=== PATIENT | male | born 1955 | race Caucasian/White ===

== ENCOUNTER → 2016-09-02 | Outpatient (CLI) | payer MEDICARE, MEDICAID ==
[~2016-09-02] MED LIST: ALLO100T PO; AMMO225L14 TP; ASPI81 PO; ATOR10TA84 PO; BENZ-26 PO; BUDE10.2 IH; CEPH500 PO; ENOX30DI5 SQ; ESCI10TA PO; FURO40 PO; GABA-531 PO; INSLAN SQ; INSU100C3 SQ; LACHLOT TP; LIDOCAINE HCL 2% 5 ML JELLY TP ONE; LOSA25TA21 PO; MONT10TA21 PO; NYSTATIN 15 GM POWDER BOTTLE TP ONE; OMEP20 PO; PRED10 PO; SITA50 PO; SPIR50 PO
[2016-09-02 10:25] VITALS: BP 139/74
== END | disposition home or self-care (01) ==
LOC: HBOWC 09:25
PROVIDERS: ATTEND Emergency Medicine
DX: E11.621 Type 2 diabetes mellitus with foot ulcer (principal); L97.521 Non-pressure chronic ulcer of other part of left foot limited to breakdown of skin; E11.622 Type 2 diabetes mellitus with other skin ulcer; L97.321 Non-pressure chronic ulcer of left ankle limited to breakdown of skin; I87.2 Venous insufficiency (chronic) (peripheral); E11.40 Type 2 diabetes mellitus with diabetic neuropathy, unspecified; B35.1 Tinea unguium; L84 Corns and callosities; M21.42 Flat foot [pes planus] (acquired), left foot; M21.41 Flat foot [pes planus] (acquired), right foot; Z86.718 Personal history of other venous thrombosis and embolism
CPT/HCPCS: 11056; 11721; 97597

== ENCOUNTER 2016-09-16 10:24 | Inpatient (IN) | payer MEDICARE, MEDICAID ==
[~2016-09-16] VITALS: Ht 195.6 cm; Wt 156.6 kg
[~2016-09-16 10:24] MED LIST changes: -CEPH500 PO; -ENOX30DI5 SQ; -LACHLOT TP; -LIDOCAINE HCL 2% 5 ML JELLY TP ONE; -NYSTATIN 15 GM POWDER BOTTLE TP ONE
[2016-09-16] MEDS ORDERED: ENOX30DI5 SQ (10:29)
[2016-09-16 10:42] LABS: GLUCOSE,POINT OF CARE 268 MG/DL (70-110)
[2016-09-16 12:13] LABS: BASOPHILS % (AUTO) 0.4 % (0.0-2.0); EOSINOPHILS % (AUTO) 3.5 % (1.0-6.0); HEMATOCRIT 36.9 % (41-53); HEMOGLOBIN 11.7 g/dL (13.5-17.5); LYMPHOCYTES # (AUTO) 1.3 K/uL (1.0-4.8); LYMPHOCYTES % (AUTO) 20.6 % (22.0-44.0); MEAN CORPUSCULAR HEMOGLOBIN 30.5 pg (26.0-34.0); MEAN CORPUSCULAR HGB CONC 31.8 G/dL (31.0-37.0); MEAN CORPUSCULAR VOLUME 96 fL (80-100); MONOCYTES # (AUTO) 0.5 K/uL (0.1-1.0); MONOCYTES % (AUTO) 7.5 % (2.0-9.0); NEUTROPHILS # (AUTO) 4.3 K/uL (1.8-7.7); PLATELET COUNT (AUTO) 223 K/uL (150-450); RED BLOOD CELL COUNT(AUTO) 3.84 MIL/uL (4.50-5.90); RED CELL DISTRIBUTION WIDTH 14.7 % (11.5-14.5); WHITE BLOOD COUNT (AUTO) 6.3 K/uL (4.5-11.0)
[2016-09-16 12:27] LABS: CREATININE 1.58 mg/dL (0.60-1.30); POTASSIUM 4.5 mmol/L (3.5-5.1)
[2016-09-16 12:33] LABS: ALBUMIN 3.3 g/dL (3.4-5.0); BILIRUBIN,TOTAL 0.2 mg/dL (0.1-1.0); TOTAL PROTEIN, SERUM 7.5 g/dL (6.4-8.2)
[2016-09-16] MEDS ORDERED: VANCOMYCIN HCL 1 GM/D5% WATER 200 ML IV ONE (13:15)
[2016-09-16] MEDS ORDERED: DEXTROSE 50%-WATER 25 GM/50 ML SYRINGE IVP PRN (13:45)
[2016-09-16] MEDS ORDERED: 0.9% SODIUM CHLORIDE 10 ML SYRINGE IVP PRN (13:45)
[2016-09-16] MEDS ORDERED: ONDANSETRON HCL 4 MG/2 ML VIAL IVP PRN (13:45)
[2016-09-16] MEDS ORDERED: ACETAMINOPHEN 325 MG TABLET PO PRN (13:45)
[2016-09-16 17:01] LABS: GLUCOSE,POINT OF CARE 185 MG/DL (70-110)
[2016-09-16 17:30] VITALS: BP 122/84
[2016-09-16] MEDS: INSULIN ASPART 100 UNITS/ML SQ PRN ×2 (17:52→21:11)
[2016-09-16] MEDS ORDERED: PNEUMOCOCCAL VACCINE POLYVALENT 0.5 ML VIAL [PPSV23] IM ONE (18:30)
[2016-09-16 19:30] VITALS: BP 138/65
[2016-09-16 19:36] LABS: GLUCOSE COMMENT 1 Received Meds; GLUCOSE,POINT OF CARE 169 MG/DL (70-110)
[2016-09-16] MEDS ORDERED: ENOXAPARIN SODIUM 80 MG/0.8 ML PF SYRINGE SQ SCH (21:00)
[2016-09-16] MEDS: BUDESONIDE/FORMOTEROL FUMARATE 160-4.5 MCG/PUFF 6.9 GM INHALER IH SCH (21:06)
[2016-09-16] MEDS: ATORVASTATIN CALCIUM 10 MG TABLET PO SCH (21:07)
[2016-09-16] MEDS: OMEPRAZOLE 20 MG CAPSULE PO SCH (21:07)
[2016-09-16] MEDS: GABAPENTIN 300 MG CAPSULE PO SCH (21:07)
[2016-09-16] MEDS: BENZONATATE 100 MG CAPSULE PO SCH (21:07)
[2016-09-16] MEDS: INSULIN DETEMIR 100 UNITS/ML SQ SCH (21:09)
[2016-09-16] MEDS ORDERED: SODIUM CHLORIDE 0.9% 250 ML IV ONE (21:39)
[2016-09-16] MEDS: VANCOMYCIN HCL 1.25 GM in DEXTROSE 5%-WATER 250 ML IV SCH (21:49)
[2016-09-16 23:31] LABS: GLUCOSE COMMENT 1 Received Meds; GLUCOSE,POINT OF CARE 256 MG/DL (70-110)
[2016-09-16 23:59] VITALS: BP 122/77
[2016-09-17 04:16] VITALS: BP 118/59
[2016-09-17 06:42] LABS: BASOPHILS # (AUTO) 0.02 K/uL (0.00-0.20); BASOPHILS % (AUTO) 0.4 % (0.0-2.0); EOSINOPHILS # (AUTO) 0.25 K/uL (0.00-0.70); EOSINOPHILS % (AUTO) 3.68 % (1.0-6.0); HEMATOCRIT 35.9 % (41-53); HEMOGLOBIN 11.7 g/dL (13.5-17.5); LYMPHOCYTES # (AUTO) 1.5 K/uL (1.0-4.8); LYMPHOCYTES % (AUTO) 22.1 % (22.0-44.0); MEAN CORPUSCULAR HGB CONC 32.4 G/dL (31.0-37.0); MEAN CORPUSCULAR VOLUME 96 fL (80-100); MONOCYTES # (AUTO) 0.5 K/uL (0.1-1.0); MONOCYTES % (AUTO) 7.4 % (2.0-9.0); NEUTROPHILS # (AUTO) 4.5 K/uL (1.8-7.7); NEUTROPHILS % (AUTO) 66.5 % (40.0-70.0); PLATELET COUNT (AUTO) 225 K/uL (150-450); RED BLOOD CELL COUNT(AUTO) 3.76 MIL/uL (4.50-5.90); RED CELL DISTRIBUTION WIDTH 14.5 % (11.5-14.5); WHITE BLOOD COUNT (AUTO) 6.7 K/uL (4.5-11.0)
[2016-09-17 06:43] LABS: PROTHROMBIN TIME 10.7 SEC (9.4-11.6)
[2016-09-17] MEDS ORDERED: DEXTROSE 50%-WATER 25 GM/50 ML SYRINGE IVP PRN (06:45)
[2016-09-17] MEDS: INSULIN ASPART 100 UNITS/ML SQ PRN ×4 (06:45→20:45)
[2016-09-17 07:13] LABS: ALBUMIN 2.9 g/dL (3.4-5.0); BILIRUBIN,TOTAL 0.3 mg/dL (0.1-1.0); CALCIUM, TOTAL 8.8 mg/dL (8.8-10.5); CREATININE 1.44 mg/dL (0.60-1.30); POTASSIUM 4.3 mmol/L (3.5-5.1); TOTAL PROTEIN, SERUM 6.7 g/dL (6.4-8.2)
[2016-09-17 07:55] VITALS: BP 126/81
[2016-09-17 08:11] LABS: GLUCOSE COMMENT 1 Received Meds; GLUCOSE,POINT OF CARE 174 MG/DL (70-110)
[2016-09-17] MEDS: AMMONIUM LACTATE 12% 225 GM LOTION TP SCH (09:00)
[2016-09-17] MEDS: MONTELUKAST SODIUM 10 MG TABLET PO SCH (09:51)
[2016-09-17] MEDS: BENZONATATE 100 MG CAPSULE PO SCH ×2 (09:51→20:38)
[2016-09-17] MEDS: OMEPRAZOLE 20 MG CAPSULE PO SCH ×2 (09:52→20:38)
[2016-09-17] MEDS: GABAPENTIN 300 MG CAPSULE PO SCH ×3 (09:52→20:38)
[2016-09-17] MEDS: FUROSEMIDE 40 MG TABLET PO SCH (09:52)
[2016-09-17] MEDS: ASPIRIN 81 MG CHEWABLE TABLET PO SCH (09:52)
[2016-09-17] MEDS: ESCITALOPRAM OXALATE 10 MG TABLET PO SCH (09:53)
[2016-09-17] MEDS: PredniSONE 10 MG TABLET PO SCH (09:53)
[2016-09-17] MEDS: ALLOPURINOL 100 MG TABLET PO SCH (09:53)
[2016-09-17] MEDS: BUDESONIDE/FORMOTEROL FUMARATE 160-4.5 MCG/PUFF 6.9 GM INHALER IH SCH ×2 (09:53→20:34)
[2016-09-17] MEDS: LOSARTAN POTASSIUM 25 MG TABLET PO SCH (09:54)
[2016-09-17] MEDS: SPIRONOLACTONE 50 MG TABLET PO SCH (09:54)
[2016-09-17] MEDS: SitaGLIPtin PHOSPHATE 50 MG TABLET PO SCH (09:54)
[2016-09-17] MEDS: ENOXAPARIN SODIUM 30 MG/0.3 ML PF SYRINGE SQ SCH ×2 (09:55→21:13)
[2016-09-17] MEDS: ENOXAPARIN SODIUM 100 MG/ML PF SYRINGE SQ SCH ×2 (09:55→20:37)
[2016-09-17] MEDS: VANCOMYCIN HCL 1.25 GM in DEXTROSE 5%-WATER 250 ML IV SCH ×2 (10:39→20:34)
[2016-09-17 11:14] VITALS: BP 134/77
[2016-09-17 16:07] VITALS: BP 107/75
[2016-09-17 20:04] VITALS: BP 101/70
[2016-09-17] MEDS: ATORVASTATIN CALCIUM 10 MG TABLET PO SCH (20:38)
[2016-09-17] MEDS: INSULIN DETEMIR 100 UNITS/ML SQ SCH (20:45)
[2016-09-17 23:58] VITALS: BP 114/68
[2016-09-18 04:55] VITALS: BP 129/79
[2016-09-18] MEDS: INSULIN ASPART 100 UNITS/ML SQ PRN ×4 (06:38→20:52)
[2016-09-18 07:54] VITALS: BP 120/82
[2016-09-18] MEDS: MONTELUKAST SODIUM 10 MG TABLET PO SCH (08:09)
[2016-09-18] MEDS: FUROSEMIDE 40 MG TABLET PO SCH (08:09)
[2016-09-18] MEDS: ALLOPURINOL 100 MG TABLET PO SCH (08:10)
[2016-09-18] MEDS: LOSARTAN POTASSIUM 25 MG TABLET PO SCH (08:10)
[2016-09-18] MEDS: GABAPENTIN 300 MG CAPSULE PO SCH ×3 (08:10→20:44)
[2016-09-18] MEDS: BENZONATATE 100 MG CAPSULE PO SCH ×2 (08:10→20:44)
[2016-09-18] MEDS: ASPIRIN 81 MG CHEWABLE TABLET PO SCH (08:10)
[2016-09-18] MEDS: SPIRONOLACTONE 50 MG TABLET PO SCH (08:10)
[2016-09-18] MEDS: OMEPRAZOLE 20 MG CAPSULE PO SCH ×2 (08:10→20:44)
[2016-09-18] MEDS: SitaGLIPtin PHOSPHATE 50 MG TABLET PO SCH (08:10)
[2016-09-18] MEDS: PredniSONE 10 MG TABLET PO SCH (08:10)
[2016-09-18] MEDS: ENOXAPARIN SODIUM 30 MG/0.3 ML PF SYRINGE SQ SCH ×2 (08:11→20:43)
[2016-09-18] MEDS: ESCITALOPRAM OXALATE 10 MG TABLET PO SCH (08:11)
[2016-09-18] MEDS: ENOXAPARIN SODIUM 100 MG/ML PF SYRINGE SQ SCH ×2 (08:11→20:43)
[2016-09-18] MEDS: BUDESONIDE/FORMOTEROL FUMARATE 160-4.5 MCG/PUFF 6.9 GM INHALER IH SCH ×2 (08:12→20:44)
[2016-09-18] MEDS: VANCOMYCIN HCL 1.25 GM in DEXTROSE 5%-WATER 250 ML IV SCH (08:13)
[2016-09-18 08:56] LABS: BASOPHILS % (AUTO) 0.5 % (0.0-2.0); EOSINOPHILS % (AUTO) 2.9 % (1.0-6.0); HEMATOCRIT 36.1 % (41-53); HEMOGLOBIN 11.7 g/dL (13.5-17.5); LYMPHOCYTES # (AUTO) 2.1 K/uL (1.0-4.8); LYMPHOCYTES % (AUTO) 32.8 % (22.0-44.0); MEAN CORPUSCULAR HGB CONC 32.4 G/dL (31.0-37.0); MEAN CORPUSCULAR VOLUME 96 fL (80-100); MONOCYTES # (AUTO) 0.4 K/uL (0.1-1.0); MONOCYTES % (AUTO) 5.8 % (2.0-9.0); NEUTROPHILS # (AUTO) 3.7 K/uL (1.8-7.7); PLATELET COUNT (AUTO) 240 K/uL (150-450); RED BLOOD CELL COUNT(AUTO) 3.77 MIL/uL (4.50-5.90); WHITE BLOOD COUNT (AUTO) 6.5 K/uL (4.5-11.0)
[2016-09-18] MEDS: AMMONIUM LACTATE 12% 225 GM LOTION TP SCH (09:00)
[2016-09-18 09:23] LABS: HEMOGLOBIN A1C 15.4 % (4.5-6.2)
[2016-09-18 09:32] LABS: BILIRUBIN,TOTAL 0.3 mg/dL (0.1-1.0); CALCIUM, TOTAL 8.8 mg/dL (8.8-10.5); CHOL/HDL RATIO 4.2 (4.2-7.3); CREATININE 1.49 mg/dL (0.60-1.30); MAGNESIUM 1.4 mg/dL (1.80-2.40); TOTAL PROTEIN, SERUM 7.1 g/dL (6.4-8.2)
[2016-09-18 09:53] LABS: THYROID STIMULATING HORMONE 3.8 uIU/mL (0.36-3.74)
[2016-09-18 11:21] VITALS: BP 142/81
[2016-09-18 12:21] LABS: GLUCOSE,POINT OF CARE 365 MG/DL (70-110)
[2016-09-18 15:18] VITALS: BP 118/72
[2016-09-18] MEDS ORDERED: DEXTROSE 50%-WATER 25 GM/50 ML SYRINGE IVP PRN (17:45)
[2016-09-18 17:51] LABS: GLUCOSE COMMENT 1 Received Meds; GLUCOSE,POINT OF CARE 419 MG/DL (70-110)
[2016-09-18 19:31] VITALS: BP 138/84
[2016-09-18] MEDS: VANCOMYCIN HCL 1 GM/D5% WATER 200 ML IV SCH (20:43)
[2016-09-18] MEDS: ATORVASTATIN CALCIUM 10 MG TABLET PO SCH (20:45)
[2016-09-18] MEDS: INSULIN DETEMIR 100 UNITS/ML SQ SCH (20:49)
[2016-09-18] MEDS ORDERED: SODIUM CHLORIDE 0.9% 250 ML IV ONE (22:49)
[2016-09-19] VITALS (7 sets, daily range): BP systolic 109–140; BP diastolic 70–81
[2016-09-19 06:07] LABS: CALCIUM, TOTAL 8.8 mg/dL (8.8-10.5); CREATININE 1.52 mg/dL (0.60-1.30); POTASSIUM 4.3 mmol/L (3.5-5.1)
[2016-09-19] MEDS: INSULIN ASPART 100 UNITS/ML SQ PRN ×4 (06:14→21:47)
[2016-09-19 06:21] LABS: GLUCOSE COMMENT 1 Received Meds; GLUCOSE,POINT OF CARE 276 MG/DL (70-110)
[2016-09-19] MEDS: BUDESONIDE/FORMOTEROL FUMARATE 160-4.5 MCG/PUFF 6.9 GM INHALER IH SCH ×2 (09:04→21:37)
[2016-09-19] MEDS: SPIRONOLACTONE 50 MG TABLET PO SCH (09:04)
[2016-09-19] MEDS: VANCOMYCIN HCL 1 GM/D5% WATER 200 ML IV SCH ×2 (09:04→21:34)
[2016-09-19] MEDS: ASPIRIN 81 MG CHEWABLE TABLET PO SCH (09:05)
[2016-09-19] MEDS: SitaGLIPtin PHOSPHATE 50 MG TABLET PO SCH (09:05)
[2016-09-19] MEDS: PredniSONE 10 MG TABLET PO SCH (09:05)
[2016-09-19] MEDS: LOSARTAN POTASSIUM 25 MG TABLET PO SCH (09:05)
[2016-09-19] MEDS: FUROSEMIDE 40 MG TABLET PO SCH (09:05)
[2016-09-19] MEDS: GABAPENTIN 300 MG CAPSULE PO SCH ×3 (09:06→21:37)
[2016-09-19] MEDS: MONTELUKAST SODIUM 10 MG TABLET PO SCH (09:06)
[2016-09-19] MEDS: ESCITALOPRAM OXALATE 10 MG TABLET PO SCH (09:06)
[2016-09-19] MEDS: OMEPRAZOLE 20 MG CAPSULE PO SCH ×2 (09:06→21:37)
[2016-09-19] MEDS: ALLOPURINOL 100 MG TABLET PO SCH (09:07)
[2016-09-19] MEDS: BENZONATATE 100 MG CAPSULE PO SCH ×2 (09:07→21:37)
[2016-09-19] MEDS: ENOXAPARIN SODIUM 30 MG/0.3 ML PF SYRINGE SQ SCH ×2 (09:07→21:37)
[2016-09-19] MEDS: ENOXAPARIN SODIUM 100 MG/ML PF SYRINGE SQ SCH ×2 (09:10→21:38)
[2016-09-19] MEDS: AMMONIUM LACTATE 12% 225 GM LOTION TP SCH (12:42)
[2016-09-19] MEDS: MINERAL OIL/PETROLATUM 120 GM CREAM TP SCH (12:43)
[2016-09-19 19:16] LABS: GLUCOSE,POINT OF CARE 437 MG/DL (70-110)
[2016-09-19] MEDS: ATORVASTATIN CALCIUM 10 MG TABLET PO SCH (21:37)
[2016-09-19] MEDS: INSULIN DETEMIR 100 UNITS/ML SQ SCH (21:47)
[2016-09-20 04:45] VITALS: BP 121/74
[2016-09-20] MEDS: INSULIN ASPART 100 UNITS/ML SQ PRN ×4 (06:18→21:11)
[2016-09-20 06:27] LABS: GLUCOSE,POINT OF CARE 234 MG/DL (70-110)
[2016-09-20 06:27] LABS: GLUCOSE COMMENT 1 Received Meds; GLUCOSE,POINT OF CARE 374 MG/DL (70-110)
[2016-09-20 06:56] LABS: CALCIUM, TOTAL 9.2 mg/dL (8.8-10.5); CREATININE 1.52 mg/dL (0.60-1.30); POTASSIUM 4.1 mmol/L (3.5-5.1)
[2016-09-20 07:24] VITALS: BP 120/74
[2016-09-20] MEDS: PredniSONE 10 MG TABLET PO SCH (08:10)
[2016-09-20] MEDS: ALLOPURINOL 100 MG TABLET PO SCH (08:10)
[2016-09-20] MEDS: SitaGLIPtin PHOSPHATE 50 MG TABLET PO SCH (08:10)
[2016-09-20] MEDS: VANCOMYCIN HCL 1 GM/D5% WATER 200 ML IV SCH ×2 (08:10→20:51)
[2016-09-20] MEDS: MONTELUKAST SODIUM 10 MG TABLET PO SCH (08:11)
[2016-09-20] MEDS: SPIRONOLACTONE 50 MG TABLET PO SCH (08:11)
[2016-09-20] MEDS: ESCITALOPRAM OXALATE 10 MG TABLET PO SCH (08:11)
[2016-09-20] MEDS: GABAPENTIN 300 MG CAPSULE PO SCH ×3 (08:11→20:50)
[2016-09-20] MEDS: LOSARTAN POTASSIUM 25 MG TABLET PO SCH (08:11)
[2016-09-20] MEDS: FUROSEMIDE 40 MG TABLET PO SCH (08:11)
[2016-09-20] MEDS: ASPIRIN 81 MG CHEWABLE TABLET PO SCH (08:11)
[2016-09-20] MEDS: OMEPRAZOLE 20 MG CAPSULE PO SCH ×2 (08:12→20:50)
[2016-09-20] MEDS: BUDESONIDE/FORMOTEROL FUMARATE 160-4.5 MCG/PUFF 6.9 GM INHALER IH SCH ×2 (08:12→20:50)
[2016-09-20] MEDS: BENZONATATE 100 MG CAPSULE PO SCH ×2 (08:12→20:50)
[2016-09-20] MEDS: ENOXAPARIN SODIUM 100 MG/ML PF SYRINGE SQ SCH ×2 (08:13→20:51)
[2016-09-20] MEDS: ENOXAPARIN SODIUM 30 MG/0.3 ML PF SYRINGE SQ SCH ×2 (08:13→20:51)
[2016-09-20] MEDS: AMMONIUM LACTATE 12% 225 GM LOTION TP SCH (08:14)
[2016-09-20] MEDS: MINERAL OIL/PETROLATUM 120 GM CREAM TP SCH (08:14)
[2016-09-20 11:42] VITALS: BP 113/76
[2016-09-20 11:46] LABS: GLUCOSE COMMENT 1 Received Meds; GLUCOSE,POINT OF CARE 295 MG/DL (70-110)
[2016-09-20 15:28] VITALS: BP 109/76
[2016-09-20 19:24] VITALS: BP 112/68
[2016-09-20] MEDS: ATORVASTATIN CALCIUM 10 MG TABLET PO SCH (20:50)
[2016-09-20] MEDS: INSULIN DETEMIR 100 UNITS/ML SQ SCH (21:11)
[2016-09-20 23:29] VITALS: BP 114/71
[2016-09-21 04:13] VITALS: BP 115/79
[2016-09-21 06:22] LABS: CALCIUM, TOTAL 9.3 mg/dL (8.8-10.5); CREATININE 1.53 mg/dL (0.60-1.30); POTASSIUM 4.4 mmol/L (3.5-5.1)
[2016-09-21] MEDS: INSULIN ASPART 100 UNITS/ML SQ PRN ×3 (06:43→17:59)
[2016-09-21] MEDS: GABAPENTIN 300 MG CAPSULE PO SCH ×2 (08:09→15:53)
[2016-09-21] MEDS: ENOXAPARIN SODIUM 100 MG/ML PF SYRINGE SQ SCH (08:09)
[2016-09-21] MEDS: ENOXAPARIN SODIUM 30 MG/0.3 ML PF SYRINGE SQ SCH (08:09)
[2016-09-21] MEDS: ASPIRIN 81 MG CHEWABLE TABLET PO SCH (08:09)
[2016-09-21] MEDS: OMEPRAZOLE 20 MG CAPSULE PO SCH (08:09)
[2016-09-21] MEDS: FUROSEMIDE 40 MG TABLET PO SCH (08:10)
[2016-09-21] MEDS: BENZONATATE 100 MG CAPSULE PO SCH (08:10)
[2016-09-21] MEDS: ALLOPURINOL 100 MG TABLET PO SCH (08:10)
[2016-09-21] MEDS: PredniSONE 10 MG TABLET PO SCH (08:10)
[2016-09-21] MEDS: ESCITALOPRAM OXALATE 10 MG TABLET PO SCH (08:10)
[2016-09-21] MEDS: MONTELUKAST SODIUM 10 MG TABLET PO SCH (08:10)
[2016-09-21] MEDS: SitaGLIPtin PHOSPHATE 50 MG TABLET PO SCH (08:10)
[2016-09-21] MEDS: LOSARTAN POTASSIUM 25 MG TABLET PO SCH (08:10)
[2016-09-21] MEDS: SPIRONOLACTONE 50 MG TABLET PO SCH (08:10)
[2016-09-21] MEDS: BUDESONIDE/FORMOTEROL FUMARATE 160-4.5 MCG/PUFF 6.9 GM INHALER IH SCH (08:11)
[2016-09-21] MEDS: MINERAL OIL/PETROLATUM 120 GM CREAM TP SCH (08:12)
[2016-09-21] MEDS: AMMONIUM LACTATE 12% 225 GM LOTION TP SCH (08:12)
[2016-09-21 08:28] VITALS: BP 114/76
[2016-09-21] MEDS: VANCOMYCIN HCL 1 GM/D5% WATER 200 ML IV SCH (08:30)
[2016-09-21 11:49] VITALS: BP 114/55
[2016-09-21 16:37] VITALS: BP 116/72
[2016-09-21] MEDS ORDERED: CEPH500 PO (16:53)
[2016-09-21 18:12] LABS: GLUCOSE COMMENT 1 Received Meds; GLUCOSE,POINT OF CARE 351 MG/DL (70-110)
[2016-09-21 18:16] LABS: GLUCOSE COMMENT 1 Received Meds; GLUCOSE,POINT OF CARE 316 MG/DL (70-110)
[2016-09-21 18:31] LABS: GLUCOSE COMMENT 1 Received Meds; GLUCOSE,POINT OF CARE 353 MG/DL (70-110)
[2016-09-23 15:01] LABS: GLUCOSE COMMENT 1 Received Meds; GLUCOSE,POINT OF CARE 250 MG/DL (70-110)
[2016-09-23 15:01] LABS: GLUCOSE COMMENT 1 Received Meds; GLUCOSE,POINT OF CARE 372 MG/DL (70-110)
[2016-09-23 15:01] LABS: GLUCOSE,POINT OF CARE 319 MG/DL (70-110)
[2016-09-23 15:02] LABS: GLUCOSE COMMENT 1 Received Meds; GLUCOSE,POINT OF CARE 341 MG/DL (70-110)
[2016-09-23 15:13] LABS: GLUCOSE COMMENT 1 Received Meds; GLUCOSE,POINT OF CARE 332 MG/DL (70-110)
[2016-09-23 15:16] LABS: GLUCOSE COMMENT 1 Received Meds; GLUCOSE,POINT OF CARE 210 MG/DL (70-110)
[2016-09-23 15:16] LABS: GLUCOSE COMMENT 1 Received Meds; GLUCOSE,POINT OF CARE 293 MG/DL (70-110)
== END 2016-09-21 18:30 | disposition home or self-care (01) | DRG 638 ==
LOC: EMS 10:27 → 5S 14:18 → 6N 14:18 → 5N 09-19 20:20
PROVIDERS: ADMIT Family Medicine; ATTEND Family Medicine
PROC: 3E0234Z Introduction of Serum, Toxoid and Vaccine into Muscle, Percutaneous Approach (ICD-10-PCS; principal; 2016-09-16)
PROC: 5A09457 Assistance with Respiratory Ventilation, 24-96 Consecutive Hours, Continuous Positive Airway Pressure (ICD-10-PCS; 2016-09-16)
DX: E11.628 Type 2 diabetes mellitus with other skin complications (principal); L03.116 Cellulitis of left lower limb; Z68.41 Body mass index [BMI] 40.0-44.9, adult; E66.9 Obesity, unspecified; J44.9 Chronic obstructive pulmonary disease, unspecified; F32.9 Major depressive disorder, single episode, unspecified; E78.5 Hyperlipidemia, unspecified; L40.9 Psoriasis, unspecified; G47.33 Obstructive sleep apnea (adult) (pediatric); J45.909 Unspecified asthma, uncomplicated; M10.9 Gout, unspecified; Z96.649 Presence of unspecified artificial hip joint; Z79.4 Long term (current) use of insulin; Z86.718 Personal history of other venous thrombosis and embolism; Z88.0 Allergy status to penicillin; Z79.899 Other long term (current) drug therapy; Z79.82 Long term (current) use of aspirin; Z23 Encounter for immunization
CPT/HCPCS: 82962; 83036; 83735; 84443; 87040; 87081; 90471; 93971; 94660; 96365; 96366; 99285; J1650; J3370; J7050; J7060

== ENCOUNTER → 2016-09-30 | Outpatient (CLI) | payer MEDICARE, MEDICAID ==
[~2016-09-30] MED LIST changes: +CEPH500 PO; +ENOX30DI5 SQ
[2016-09-30 08:51] VITALS: BP 111/73
== END | disposition home or self-care (01) ==
LOC: HBOWC 08:48
PROVIDERS: ATTEND Emergency Medicine Undersea and Hyperbaric Medicine
DX: E11.621 Type 2 diabetes mellitus with foot ulcer (principal); L84 Corns and callosities; E11.622 Type 2 diabetes mellitus with other skin ulcer; L97.321 Non-pressure chronic ulcer of left ankle limited to breakdown of skin; L97.521 Non-pressure chronic ulcer of other part of left foot limited to breakdown of skin; E11.40 Type 2 diabetes mellitus with diabetic neuropathy, unspecified; B35.3 Tinea pedis; M10.9 Gout, unspecified; E78.5 Hyperlipidemia, unspecified; I87.2 Venous insufficiency (chronic) (peripheral); F32.9 Major depressive disorder, single episode, unspecified; E66.9 Obesity, unspecified; Z68.41 Body mass index [BMI] 40.0-44.9, adult; L40.9 Psoriasis, unspecified; J45.909 Unspecified asthma, uncomplicated; B35.1 Tinea unguium; Z86.718 Personal history of other venous thrombosis and embolism; Z79.4 Long term (current) use of insulin; M20.42 Other hammer toe(s) (acquired), left foot; M20.41 Other hammer toe(s) (acquired), right foot
CPT/HCPCS: 11057

== ENCOUNTER → 2016-10-14 | Outpatient (CLI) | payer MEDICARE, MEDICAID ==
[2016-10-14 11:33] VITALS: BP 132/75
== END | disposition home or self-care (01) ==
LOC: HBOWC 09:52
PROVIDERS: ATTEND Emergency Medicine
DX: E11.622 Type 2 diabetes mellitus with other skin ulcer (principal); L97.321 Non-pressure chronic ulcer of left ankle limited to breakdown of skin; E11.621 Type 2 diabetes mellitus with foot ulcer; L97.521 Non-pressure chronic ulcer of other part of left foot limited to breakdown of skin; I87.2 Venous insufficiency (chronic) (peripheral); F32.9 Major depressive disorder, single episode, unspecified; E11.40 Type 2 diabetes mellitus with diabetic neuropathy, unspecified; L84 Corns and callosities; E78.5 Hyperlipidemia, unspecified; E66.9 Obesity, unspecified; J45.909 Unspecified asthma, uncomplicated; G47.33 Obstructive sleep apnea (adult) (pediatric); B35.1 Tinea unguium; Z68.41 Body mass index [BMI] 40.0-44.9, adult; M10.9 Gout, unspecified; Z79.4 Long term (current) use of insulin; M20.42 Other hammer toe(s) (acquired), left foot; M20.41 Other hammer toe(s) (acquired), right foot; Z86.718 Personal history of other venous thrombosis and embolism
CPT/HCPCS: 97597

== ENCOUNTER → 2016-10-28 | Outpatient (CLI) | payer MEDICARE, MEDICAID ==
[2016-10-28 09:42] VITALS: BP 129/70
== END | disposition home or self-care (01) ==
LOC: HBOWC 08:59
PROVIDERS: ATTEND Emergency Medicine Undersea and Hyperbaric Medicine
DX: E11.622 Type 2 diabetes mellitus with other skin ulcer (principal); L97.321 Non-pressure chronic ulcer of left ankle limited to breakdown of skin; I87.2 Venous insufficiency (chronic) (peripheral); E11.40 Type 2 diabetes mellitus with diabetic neuropathy, unspecified; Q89.9 Congenital malformation, unspecified; L84 Corns and callosities; E78.5 Hyperlipidemia, unspecified; F32.9 Major depressive disorder, single episode, unspecified; E66.9 Obesity, unspecified; B35.9 Dermatophytosis, unspecified; J44.9 Chronic obstructive pulmonary disease, unspecified; Z79.4 Long term (current) use of insulin; Z86.718 Personal history of other venous thrombosis and embolism
CPT/HCPCS: 97597

== ENCOUNTER → 2016-11-11 | Outpatient (CLI) | payer MEDICARE, MEDICAID ==
[2016-11-11 10:12] VITALS: BP 102/65
== END | disposition home or self-care (01) ==
LOC: HBOWC 09:08
PROVIDERS: ATTEND Emergency Medicine
DX: E11.622 Type 2 diabetes mellitus with other skin ulcer (principal); I87.2 Venous insufficiency (chronic) (peripheral); L97.321 Non-pressure chronic ulcer of left ankle limited to breakdown of skin; E11.40 Type 2 diabetes mellitus with diabetic neuropathy, unspecified; J44.9 Chronic obstructive pulmonary disease, unspecified; E78.5 Hyperlipidemia, unspecified; F32.9 Major depressive disorder, single episode, unspecified; E66.9 Obesity, unspecified; Z68.41 Body mass index [BMI] 40.0-44.9, adult; M10.9 Gout, unspecified; B35.1 Tinea unguium; M20.42 Other hammer toe(s) (acquired), left foot; M20.41 Other hammer toe(s) (acquired), right foot; Z79.4 Long term (current) use of insulin; Z86.718 Personal history of other venous thrombosis and embolism
CPT/HCPCS: 97597

== ENCOUNTER → 2016-11-25 | Outpatient (CLI) | payer MEDICARE, MEDICAID ==
[2016-11-25 10:45] VITALS: BP 125/85
== END | disposition home or self-care (01) ==
LOC: HBOWC 09:01
PROVIDERS: ATTEND Emergency Medicine Undersea and Hyperbaric Medicine
DX: E11.622 Type 2 diabetes mellitus with other skin ulcer (principal); L97.321 Non-pressure chronic ulcer of left ankle limited to breakdown of skin; I87.2 Venous insufficiency (chronic) (peripheral); E11.621 Type 2 diabetes mellitus with foot ulcer; L97.521 Non-pressure chronic ulcer of other part of left foot limited to breakdown of skin; L97.511 Non-pressure chronic ulcer of other part of right foot limited to breakdown of skin; M79.675 Pain in left toe(s); M79.674 Pain in right toe(s); E11.40 Type 2 diabetes mellitus with diabetic neuropathy, unspecified; L84 Corns and callosities; B35.1 Tinea unguium; J44.9 Chronic obstructive pulmonary disease, unspecified; M10.9 Gout, unspecified; E78.5 Hyperlipidemia, unspecified; F32.9 Major depressive disorder, single episode, unspecified; E66.9 Obesity, unspecified; Z68.41 Body mass index [BMI] 40.0-44.9, adult; Z86.718 Personal history of other venous thrombosis and embolism; Z79.4 Long term (current) use of insulin
CPT/HCPCS: 11056; 97597

== ENCOUNTER → 2016-12-23 | Outpatient (CLI) | payer MEDICARE, MEDICAID ==
[2016-12-23 09:15] VITALS: BP 106/62
== END | disposition home or self-care (01) ==
LOC: HBOWC 08:56
PROVIDERS: ATTEND Emergency Medicine
DX: E11.621 Type 2 diabetes mellitus with foot ulcer (principal); L97.521 Non-pressure chronic ulcer of other part of left foot limited to breakdown of skin; I87.2 Venous insufficiency (chronic) (peripheral); E11.40 Type 2 diabetes mellitus with diabetic neuropathy, unspecified; B35.1 Tinea unguium; J44.9 Chronic obstructive pulmonary disease, unspecified; E78.5 Hyperlipidemia, unspecified; F32.9 Major depressive disorder, single episode, unspecified; E66.9 Obesity, unspecified; Z68.41 Body mass index [BMI] 40.0-44.9, adult; M20.42 Other hammer toe(s) (acquired), left foot; M20.41 Other hammer toe(s) (acquired), right foot; Z79.4 Long term (current) use of insulin; Z86.718 Personal history of other venous thrombosis and embolism
CPT/HCPCS: 97597

== ENCOUNTER → 2017-01-06 | Outpatient (CLI) | payer MEDICARE, MEDICAID ==
[2017-01-06 09:11] VITALS: BP 107/59
== END | disposition home or self-care (01) ==
LOC: HBOWC 08:53
PROVIDERS: ATTEND Emergency Medicine
DX: E11.621 Type 2 diabetes mellitus with foot ulcer (principal); L97.521 Non-pressure chronic ulcer of other part of left foot limited to breakdown of skin; I87.2 Venous insufficiency (chronic) (peripheral); E11.40 Type 2 diabetes mellitus with diabetic neuropathy, unspecified; J44.9 Chronic obstructive pulmonary disease, unspecified; E78.5 Hyperlipidemia, unspecified; Z79.4 Long term (current) use of insulin; F32.9 Major depressive disorder, single episode, unspecified; M20.42 Other hammer toe(s) (acquired), left foot; M20.41 Other hammer toe(s) (acquired), right foot; Z86.718 Personal history of other venous thrombosis and embolism; L84 Corns and callosities; M10.9 Gout, unspecified; E66.9 Obesity, unspecified; Z68.41 Body mass index [BMI] 40.0-44.9, adult